=== PATIENT | female | born 1940 | race Caucasian/White ===

== ENCOUNTER 2016-06-08 06:34 | Emergency (ER) | payer OTHER, BC ==
[~2016-06-08] VITALS: Ht 165.1 cm; Wt 73.6 kg
[~2016-06-08 06:34] MED LIST: ASPIRIN81 M2 PO; ATENOLOL50 MG PO; CARAFATE1 GM PO; CLONAZEPAM1 MG PO; FLEXERIL10 MG PO; GABAPENTIN400 MG PO; HYDROCHLOROTHIA25 MG PO; LIDODERM 5% P1 PATCH TD; LOPERAMIDE2 MG PO; LORTAB 5-325 M1 EACH PO; MULTIVITAMIN1 EAC2 PO; PRIMIDONE250 MG PO; TRAMADOL HCL50 MG PO
[2016-06-08 06:36] VITALS: BP 170/93
[2016-06-08 08:11] LABS: MCH 33.3 PG (29.0-34.0); MCHC 34.7 G/DL (30.0-36.0); MEAN PLAT.VOLUME 9.2 uM^3 (9.5-12.4); PLATELET COUNT 249 K/uL (156-360); RBC DIS.WIDTH-CV 11.9 % (11.8-14.6); RBC DIS.WIDTH-SD 42.3 % (39-53); RED BLOOD COUNT 4.48 M/uL (3.80-5.20); WHITE BLOOD COUNT 5.5 K/uL (4.1-10.2)
[2016-06-08 08:24] LABS: CHLORIDE 99 mEq/L (99-109); POTASSIUM 3.2 mEq/L (3.7-5.4); SODIUM 140 mEq/L (136-147)
[2016-06-08 08:27] LABS: GLUCOSE 95 mg/dL (70-99)
[2016-06-08 08:28] LABS: ANION GAP 10 MEQ/L (2-14)
[2016-06-08 08:29] LABS: TOTAL BILIRUBIN 0.4 mg/dL (0.0-1.0)
[2016-06-08 08:30] LABS: ALKALINE PHOSPHATASE 90 IU/L (3-129)
[2016-06-08 08:31] LABS: GFR ESTIMATE (CALCULATED) > 59 mL/min/
[2016-06-08 08:32] LABS: DIRECT BILIRUBIN 0.2 mg/dL (0.0-0.3); TROP-I INTERPRETATION NEGATIVE; TROPONIN-I < 0.01 ng/mL (0.0-0.30); UREA NITROGEN (BUN) 4 mg/dL (9-23)
[2016-06-08 08:34] LABS: LIPASE 10 U/L (1.0-51.0)
== END 2016-06-08 09:51 | disposition left against medical advice (07) ==
LOC: EME 06:34
PROVIDERS: Nurse Practitioner Family
DX: R20.0 Anesthesia of skin (principal); E86.0 Dehydration; R19.7 Diarrhea, unspecified; R51 Headache
CPT/HCPCS: 70450; 80048; 80076; 81003; 83690; 84484; 85027; 93005; 99281; 99285; J2405; J7030

== ENCOUNTER 2016-12-28 18:04 | Emergency (ER) | payer OTHER, BC ==
[~2016-12-28] VITALS: Ht 165.1 cm; Wt 65.6 kg
[2016-12-28 18:41] VITALS: BP 165/78
== END 2016-12-28 19:00 | disposition left against medical advice (07) ==
LOC: EME 18:04
DX: R41.0 Disorientation, unspecified (principal); M54.9 Dorsalgia, unspecified; M25.569 Pain in unspecified knee; Z53.21 Procedure and treatment not carried out due to patient leaving prior to being seen by health care provider
CPT/HCPCS: 80053; 81003; 85027